=== PATIENT | female | born 1975 | race Caucasian/White ===

== ENCOUNTER 2018-01-16 10:19 | Observation (INO) | payer MEDICAID ==
[~2018-01-16] VITALS: Ht 167.6 cm; Wt 173.0 kg
[~2018-01-16 10:19] MED LIST: BUPR150T6 PO; CEFD300C37 PO; DICL75TA2 PO; FURO40TA6 PO; GABA300C10 PO; LISI1TAB7 PO; METR500T PO; RANI150T4 PO; SERT50TA5 PO; UMEC1DIS IH
[2018-01-16] MEDS ORDERED: MORPHINE SULFATE 4 MG/ML, 1ML ONE ×2 (10:59→12:05)
[2018-01-16] MEDS ORDERED: SODIUM CHLORIDE FLUSH 10ML SYR IVF ONE (11:00)
[2018-01-16] MEDS ORDERED: SODIUM CHLORIDE 0.9% 1,000ML IVBOLUS ONE (11:00)
[2018-01-16] MEDS: MORPHINE SULFATE 4 MG/ML, 1ML IVPush PRN ×2 (11:02→12:06)
[2018-01-16 11:04] LABS: BASOPHILS # (AUTO) 0.05 x10^3/uL (0-0.1); BASOPHILS % (AUTO) 1 % (0-1); EOSINOPHILS # (AUTO) 0.78 x10^3/uL (0-0.4); EOSINOPHILS % (AUTO) 7 % (1-7); LYMPHOCYTES # (AUTO) 1.62 x10^3/uL (1-3.4); LYMPHOCYTES % (AUTO) 15 % (22-44); MD NO; MEAN CORPUSCULAR HEMOGLOBIN 27.3 pg (27.0-34.8); MEAN CORPUSCULAR HGB CONC 32.7 g/dL (32.4-35.8); MEAN CORPUSCULAR VOLUME 83.4 fL (80-100); MEAN PLATELET VOLUME 7.9 fL (7.4-10.4); MONOCYTES # (AUTO) 0.67 x10^3/uL (0.2-0.8); MONOCYTES % (AUTO) 6 % (2-9); NEUTROPHILS # (AUTO) 7.72 x10^3/uL (1.8-6.8); NEUTROPHILS % (AUTO) 71 % (42-75); PLATELET COUNT 327 x10^3/uL (130-400); RED BLOOD COUNT 4.35 x10^6/uL (3.82-5.3); RED CELL DISTRIBUTION WIDTH 17.2 % (9.6-15.2)
[2018-01-16 11:16] LABS: ALANINE AMINOTRANSFERASE 25 U/L (12-78); ANION GAP 6 mmol/L (5-15); CALCIUM 8.5 mg/dL (8.5-10.1); CHLORIDE 100 mmol/L (98-107); CREATININE 0.99 mg/dL (0.55-1.02)
[2018-01-16 11:21] LABS: ALKALINE PHOSPHATASE 80 U/L (45-117); BILIRUBIN,TOTAL 0.5 mg/dL (0.2-1.0); TOTAL PROTEIN 6.7 g/dL (6.4-8.2)
[2018-01-16] MEDS ORDERED: KETOROLAC 30 MG/1 ML IVPush ONE (13:30)
[2018-01-16] MEDS ORDERED: KETOROLAC 30 MG/1 ML ONE (14:13)
[2018-01-16] MEDS ORDERED: CYCLOBENZAPRINE 10 MG TABLET PO PRN (14:30)
[2018-01-16] MEDS ORDERED: POTASSIUM CHLORIDE 20 MEQ TAB.ER.PRT PO ONE (14:30)
[2018-01-16] MEDS ORDERED: BISACODYL 10 MG SUPP PR PRN (14:30)
[2018-01-16] MEDS ORDERED: DOCUSATE 100 MG CAPSULE PO PRN (14:30)
[2018-01-16] MEDS ORDERED: LABETALOL 5MG/ML, 20ML IVPush PRN (14:30)
[2018-01-16] MEDS ORDERED: POLYETHYLENE GLYCOL 17 GM PACKET PO PRN (14:30)
[2018-01-16] MEDS ORDERED: ENOXAPARIN 40 MG/0.4 ML SQ SCH (14:30)
[2018-01-16] MEDS ORDERED: ACETAMINOPHEN 325 MG TABLET PO PRN (14:30)
[2018-01-16] MEDS ORDERED: ONDANSETRON 2MG/ML, 2ML IVPush PRN (14:30)
[2018-01-16 14:48] LABS: TROPONIN I < 0.015 ng/mL (0.000-0.045)
[2018-01-16] MEDS ORDERED: OMNIPAQUE 350 MG/ML, 100ML BOTTLE ONE (15:09)
[2018-01-16] MEDS ORDERED: ALBUTEROL SULFATE 2.5 MG/3 ML NPPB PRN (15:30)
[2018-01-16 17:07] VITALS: BP 122/75
[2018-01-16] MEDS: GABAPENTIN 300 MG CAPSULE PO SCH ×2 (17:46→20:27)
[2018-01-16] MEDS: FAMOTIDINE 20 MG TABLET PO SCH (20:27)
[2018-01-16] MEDS: KETOROLAC 30 MG/1 ML IVPush PRN (20:27)
[2018-01-16] MEDS: SODIUM CHLORIDE FLUSH 10ML SYR IVF SCH (20:28)
[2018-01-16 20:34] LABS: TROPONIN I < 0.015 ng/mL (0.000-0.045)
[2018-01-16 20:45] VITALS: BP 124/76
[2018-01-17 00:44] LABS: MICROSCOPIC NOT IND
[2018-01-17 00:50] LABS: CULTURE INDICATED? NO
[2018-01-17 01:23] VITALS: BP 149/93
[2018-01-17 05:20] LABS: BASOPHILS # (AUTO) 0.05 x10^3/uL (0-0.1); BASOPHILS % (AUTO) 1 % (0-1); EOSINOPHILS # (AUTO) 0.68 x10^3/uL (0-0.4); EOSINOPHILS % (AUTO) 9 % (1-7); LYMPHOCYTES # (AUTO) 1.58 x10^3/uL (1-3.4); LYMPHOCYTES % (AUTO) 21 % (22-44); MD NO; MEAN CORPUSCULAR HEMOGLOBIN 27.9 pg (27.0-34.8); MEAN CORPUSCULAR HGB CONC 32.8 g/dL (32.4-35.8); MEAN PLATELET VOLUME 7.8 fL (7.4-10.4); MONOCYTES % (AUTO) 8 % (2-9); NEUTROPHILS # (AUTO) 4.63 x10^3/uL (1.8-6.8); NEUTROPHILS % (AUTO) 61 % (42-75); PLATELET COUNT 327 x10^3/uL (130-400); RED BLOOD COUNT 4.36 x10^6/uL (3.82-5.3)
[2018-01-17 05:28] LABS: ANION GAP 5 mmol/L (5-15); CHLORIDE 102 mmol/L (98-107)
[2018-01-17 05:31] LABS: CREATININE 0.91 mg/dL (0.55-1.02)
[2018-01-17 06:45] VITALS: BP 140/86
[2018-01-17] MEDS: KETOROLAC 30 MG/1 ML IVPush PRN (07:46)
[2018-01-17] MEDS: SODIUM CHLORIDE FLUSH 10ML SYR IVF SCH (07:50)
[2018-01-17] MEDS: FAMOTIDINE 20 MG TABLET PO SCH (07:51)
[2018-01-17] MEDS: GABAPENTIN 300 MG CAPSULE PO SCH (07:51)
[2018-01-17] MEDS ORDERED: METH4TAB2 PO (08:54)
[2018-01-17] MEDS ORDERED: CYCL-259 PO (08:55)
[2018-01-17] MEDS ORDERED: BUPROPION SR 150 MG TABLET PO SCH (09:00)
[2018-01-17] MEDS ORDERED: HYDROCHLOROTHIAZIDE 25 MG TABLET PO SCH (09:00)
[2018-01-17] MEDS ORDERED: LISINOPRIL 20 MG TABLET PO SCH (09:00)
[2018-01-17] MEDS ORDERED: FUROSEMIDE 40 MG TABLET PO SCH (09:00)
[2018-01-17] MEDS ORDERED: SERTRALINE 50MG TABLET PO SCH (09:00)
== END 2018-01-17 12:29 | disposition home or self-care (01) ==
LOC: ED 13:05 → INTOOBSV 13:28 → EDIP 13:28 → 3NE 15:40
PROVIDERS: ADMIT Hospitalist; ATTEND Hospitalist
DX: R10.9 Unspecified abdominal pain (principal); I11.9 Hypertensive heart disease without heart failure; J44.1 Chronic obstructive pulmonary disease with (acute) exacerbation; D72.829 Elevated white blood cell count, unspecified; E87.6 Hypokalemia; E44.0 Moderate protein-calorie malnutrition; F17.200 Nicotine dependence, unspecified, uncomplicated; F12.90 Cannabis use, unspecified, uncomplicated; Z83.3 Family history of diabetes mellitus
CPT/HCPCS: 36415; 71045; 71275; 74176; 76700; 80048; 80053; 81003; 83690; 84484; 84703; 85025; 85379; 93005; 96361; 96372; 96374; 96375; 96376; 99285; G0378; J1650; J1885; J7030; J7512; Q9967